=== PATIENT | female | born 1955 | race Caucasian/White ===

== ENCOUNTER 2025-08-31 02:07 | Emergency (ER) | payer MEDICARE, BC ==
[~2025-08-31] VITALS: Ht 167.6 cm; Wt 68.2 kg
--- NOTE | 2025-08-31 02:45 | Physician Documentation ---
History of Present Illness General Chief Complaint: Hypertension Stated Complaint: DIZZINESS Time Seen by MD: 02:22 Primary Medical Doctor: [facility] Mode of Arrival: EMS History of Present Illness Initial Comments Patient is a 70-year-old female who states she woke up several hours ago with room spinning dizziness and a frontal headache. The patient states she has a history of migraines, she states she felt like she was going to fall down and she stayed on the bed and has had continued dizziness that has worse with movement of her head. The patient has had no history of cardiac disease or stroke in the past. No history of vertigo. The patient complains of some frontal headache that she describes as [id number]. She does have a history of migraines. She denies any weakness or numbness the patient denies any speech difficulties. The patient took her blood pressure at home and it was elevated patient states she has a history of high blood pressure. Medication Reconciliation Allergies: Coded Allergies: tramadol (Verified Allergy, Severe, THROAT SWELLS, 06/11/18) etodolac (Verified Allergy, Intermediate, 06/11/18) RASH ezetimibe (Verified Allergy, Unknown, 08/31/25) metoprolol (Verified Allergy, Unknown, 08/31/25) pregabalin (Verified Allergy, Unknown, 08/31/25) Scheduled PRN Meclizine HCl (Meclizine HCl), 1 TAB PO Q8H PRN for dizziness/vertigo ONDANSETRON ODT 4mg tablet (Ondansetron Odt), 1 TABLET PO Q6H PRN for nausea/vomiting Past Medical History Past Medical History: Fibromyalgia Past Surgical History: noncontributory Drug Use: none Lives with: Spouse Lives In: Home Review of Systems All Other Systems at this time: Reviewed and Negative Physical Exam Physical Exam Vital Signs: Temperature: 98.1, Source: Oral, Heart Rate: 63, Respiratory Rate: 16, BP: 195/100, Pulse Oximetry: 99, Weight: 68.180 Oxygen Flow Rate: 0 Physical Exam VITALS: Reviewed and as above. GENERAL: Alert, no apparent distress. HEENT: Normocephalic, atraumatic, PERRL, EOMI, dry mucosa, no erythema RESPIRATORY: Lungs clear, normal breath sounds, no respiratory distress. CHEST: No accessory muscle use, no retractions CV: Regular rate, rhythm, no edema, no murmur, No: JVD GI: Soft, non-tender, bowels sounds present, no rebound, guarding, or rigidity BACK: No CVA tenderness, or swelling MUSCULOSKELETAL: No deformities, no edema SKIN: Warm and dry, no rash NEURO: Oriented x4, No motor or sensory deficit patient is a cerebellar testing is unremarkable the patient does have some slight and gaze horizontal nystagmus. PSYCH: Normal mood and affect, no agitation Progress Results/Orders Results/Orders Completed Orders - SYBIL LOUISE MD Normal Saline 1000ml (0.9% Sodium Chlori (08/31/25 02:45) Ketorolac Trometh 15mg/Ml Vial (Toradol (08/31/25 02:45) Ondansetron Inj. (Zofran 4mg/2ml Vial) (08/31/25 02:45) Meclizine Tablets (Antivert Tablet) (08/31/25 02:45) Lorazepam Tablet (Ativan Tablet) (08/31/25 03:44) Medications Received in ER Medications (Trade) Dose Ordered Sig/Justin Route PRN Reason Start Time Stop Time Status Last Admin Dose Admin (0.9% sodium chloride (NS) 1000ml IV soln) 1,000 ml ONCE ONCE IVB 08/31/25 02:45 08/31/25 02:46 DC 08/31/25 02:51 1,000 ML (Toradol injection) 15 mg ONCE ONCE IV 08/31/25 02:45 08/31/25 02:46 DC 08/31/25 02:51 15 MG (Zofran 4mg/2ml vial) 4 mg ONCE ONCE IV 08/31/25 02:45 08/31/25 02:46 DC 08/31/25 02:51 4 MG (Antivert tablet) 12.5 mg ONCE ONCE PO 08/31/25 02:45 08/31/25 02:47 DC 08/31/25 02:51 12.5 MG Vital Signs 08/31/25 08/31/25 08/31/25 08/31/25 02:17 02:38 02:51 03:21 Temp 98.1 98.1 Pulse 63 75 Resp 16 16 16 B/P (MAP) 195/100 176/107 (130) Pulse Ox 99 97 O2 Flow Rate 0 0 Medical Decision Making Additional information obtaine: old records, family Findings Patient with a episodic vertigo which was positional the patient has a benign exam her symptoms are only when she moves her head to the right, patient has a otherwise unremarkable neurologic exam the patient's pulse oximetry was interpreted as normal and adequate patient was given some IV fluids and dose of Toradol as she also has a migraine history and was having a headache the patient had significant improvement of her symptoms she will get a small dose of Ativan and she will be discharged on meclizine as well as Zofran. The patient's prior hospitalizations has been reviewed. The patient's pulse oximetry was interpreted as normal and adequate. Differential Diagnosis Cerebellar stroke, neuropathy, migraine Departure Impression: Primary Impression: Vertigo Discharge Instructions: Vertigo, [id number] Referrals: NO PRIMARY CARE PROVIDER (PCP) Prescriptions ONDANSETRON ODT 4mg tablet (ONDANSETRON ODT) 4 Mg Tab.rapdis 1 TABLET PO Q6H PRN for nausea/vomiting, #12 TABLET Prov: SYBIL LOUISE MD 08/31/25 Meclizine HCl (Meclizine HCl) 12.5 Mg Tablet 1 TAB PO Q8H PRN for dizziness/vertigo, #30 TAB Prov: SYBIL LOUISE MD 08/31/25 Signature Scribe Signature: No scribe Attestation: The note accurately reflects work and decisions made by me.Sybil Louise MD 08/31/25 03:50 SYBIL LOUISE MD Aug 31, 2025 02:45
[2025-08-31] MEDS: ketorolac trometh 15mg/ml vial 15 MG/ML ML IV ONE (02:51)
[2025-08-31] MEDS: normal saline 1000ML IV soln IVB ONE (02:51)
[2025-08-31] MEDS: ondansetron/PF 4mg/2ml inj IV ONE (02:51)
[2025-08-31] MEDS ORDERED: MECL-226 PO (03:45)
[2025-08-31] MEDS ORDERED: ONDA-243 PO (03:45)
[2025-08-31 03:49] VITALS: BP 158/85; PULSE 62; RESP 16; TEMP 98.1; O2SAT 94
== END 2025-08-31 04:34 | disposition home or self-care (01) ==
LOC: ER 02:07
DX: R42 Dizziness and giddiness (principal); M79.7 Fibromyalgia; Z88.5 Allergy status to narcotic agent
CPT/HCPCS: 96361; 96374; 96375; 99284; J1885; J2405; J7030; J8597